=== PATIENT | female | born 1955 | race Caucasian/White ===

== ENCOUNTER → 2017-01-17 | Outpatient (CLI) | payer OTHER ==
--- NOTE | 2017-01-18 08:32 | CT ---
EXAMINATION TYPE: CT chest wo con DATE OF EXAM: 01/17/2017 COMPARISON: NONE HISTORY: Patient complains of chronic unproductive cough. Patient had abnormal CXR at dr's office. CT DLP: 101.3 mGycm. Automated Exposure Control for Dose Reduction was Utilized. TECHNIQUE: CT scan of the thorax is performed without IV contrast. FINDINGS: LUNGS: There are multiple sub-5 mm pulmonary nodule seen throughout the lungs some of which appear to be calcified. Findings are suggestive of underlying chronic obstructive pulmonary disease. There is central bronchiectasis within the right hilum with bronchiectasis with associated consolida tion. No pneumothorax or pleural effusion. MEDIASTINUM: Lack of IV contrast is noted to limit evaluation for mediastinal and especially hilar ad enopathy. There are no definitive greater than 1 cm hilar or mediastinal lymph nodes. No cardiomega ly or pericardial effusion is seen. OTHER: Hypertrophic and degenerative change of the spine noted. Prominent Schmorl's node involving th e inferior endplate near the thoracolumbar junction. IMPRESSION: 1. Right middle lobe area of consolidation with perihilar changes of bronchiectasis. Chronic bronchi ectasis and chronic pneumonia or atelectasis in the differential diagnosis. Correlate clinically. 2. Numerous bilateral 5 mm less less pulmonary nodules. Some are calcified. May represent noncalcifie d additional granuloma. One nodule is somewhat irregular margins within the right upper lobe measurin g 7 mm. More aggressive etiology cannot be excluded. Recommend follow-up PET scan.
== END | disposition home or self-care (01) ==
LOC: RADCTMAIN 16:20
PROVIDERS: ATTEND Family Medicine
DX: J18.1 Lobar pneumonia, unspecified organism (principal); J47.9 Bronchiectasis, uncomplicated; R91.8 Other nonspecific abnormal finding of lung field
CPT/HCPCS: 71250

== ENCOUNTER → 2017-01-21 | Outpatient (CLI) | payer OTHER ==
[2017-01-21 08:27] LABS: Basophils % (A) 1 %; CH 31.2; CHCM 33.2; Eosinophils # (A) 0.2 k/uL (0-0.7); Eosinophils % (A) 7 %; HCT 44.9 % (34.0-46.0); HGB 14.6 gm/dL (11.4-16.0); Luc # (Auto) 0.11; Luc % (Auto) 4; Lymphocytes # (A) 1.2 k/uL (1.0-4.8); Lymphocytes % (A) 39 %; MCH 30.6 pg (25.0-35.0); MCHC 32.4 g/dL (31.0-37.0); MCV 94.4 fL (80.0-100.0); Mean Platelet Volume 8.1; Monocytes # (A) 0.2 k/uL (0-1.0); Monocytes % (A) 8 %; Neutrophils # (A) 1.3 k/uL (1.3-7.7); Neutrophils % (A) 42 %; RBC 4.76 m/uL (3.80-5.40); RDW 12.9 % (11.5-15.5); WBC 3.1 k/uL (3.8-10.6); WBC (Perox) 2.84
== END | disposition home or self-care (01) ==
LOC: LABWHC1 07:52
PROVIDERS: ATTEND Nurse Practitioner Adult Health
DX: Z00.00 Encounter for general adult medical examination without abnormal findings (principal)
CPT/HCPCS: 36415; 80061; 84439; 84443; 85025

== ENCOUNTER 2017-02-16 11:24 | Day surgery (SDC) | payer OTHER ==
[2017-02-14 16:18] VITALS: BMI 18.6
[~2017-02-16 11:24] MED LIST: LACTATED RINGERS 1,000 ML IV SCH
[2017-02-16 12:06] VITALS: RESP 16; TEMP 97.9
[2017-02-16] MEDS ORDERED: LIDOCAINE 1% 20 ML VIAL (10MG/ML) FOR IV START INTRADERMA ONE (12:07)
[2017-02-16] MEDS ORDERED: PROPOFOL 10 MG/ML 20 ML VIAL IV ONE (12:49)
[2017-02-16] MEDS ORDERED: GLYCOPYRROLATE 0.2 MG/ML 2 ML VIAL ONE (12:49)
[2017-02-16] MEDS ORDERED: LIDOCAINE 1% INJ 10MG/ML (20 ML MDV) ONE (12:49)
[2017-02-16 13:41] VITALS: BP 104/74; PULSE 86
--- NOTE | 2017-02-16 14:28 | P.PCN ---
Date of Procedure: 02/16/17 Preoperative Diagnosis: Right upper lobe and right middle lobe pneumonia him a bronchiectasis bilaterally in the central area Postoperative Diagnosis: As above Procedure(s) Performed: #1 bronchoscopy, #2 bronchoalveolar lavage of right upper lobe right middle lobe and right lower lobe Surgeon: Eugene Hernandez Estimated Blood Loss (ml): 0 Disposition: same day Indications for Procedure: As above Operative Findings: As below Description of Procedure: Patient prepared and draped in the usual fashion informed consent obtained the patient at length procedure alternating risk and has been explained to the patient. Fiberoptic bronchoscope was passed through the right nares the vocal cords were normal structure and function tip of the scope was has been on the vocal cords the trachea was normal but mild diffuse erythema was seen was also noted predominantly on the right side of the extensive amount of purulent secretions were noted from the right upper lobe and right middle lobe which was suctioned clean BAL was performed from the right upper lobe middle lobe and right lower lobe no endobronchial mass or lesion was seen in. Scope was subsequently the left side the left upper lobe lingular lobe and left lower lobe inspected besides having some purulent secretions no other significant pathology seen patient tolerated procedure well no complication noted.
[2017-02-16 17:27] LABS: RBC, Body Fluid 5850 /uL
[2017-02-17 16:01] LABS: Mis test requested (Non-blood) BAL 348
[2017-02-18 16:04] LABS: Mis test requested (Non-blood) Pneumo Jirovecii DFA
== END 2017-02-16 13:57 | disposition home or self-care (01) ==
LOC: ORWHC2ENDO 11:24
PROVIDERS: ATTEND Internal Medicine Sleep Medicine
DX: J18.9 Pneumonia, unspecified organism (principal); J47.0 Bronchiectasis with acute lower respiratory infection; Z85.828 Personal history of other malignant neoplasm of skin; K21.9 Gastro-esophageal reflux disease without esophagitis; Z79.899 Other long term (current) drug therapy
CPT/HCPCS: 87798 ×4; 87496; 87498; 87529 ×2; 88108; 88305; 88184; 88185; 89050; 87252; 87502 ×2; 87070; 87205; 87116; 87102; 87206; 87299; 31624; J2001; J2704; 87541